=== PATIENT | male | born 1940 | race Hispanic/Latino ===

== ENCOUNTER 2018-10-31 05:49 | Day surgery (SDC) | payer OTHER ==
[2018-10-30 10:17] LABS: BASOPHILS % (AUTO) 0.7 % (0.0-5.0); HEMATOCRIT 39.9 % (42-54); LYMPHOCYTES % (AUTO) 26.4 % (21.0-51.0); MEAN CORPUSCULAR HEMOGLOBIN 31.5 pg (27.0-33.0); MEAN CORPUSCULAR HGB CONC 33.4 g/dL (32.0-36.0); MEAN CORPUSCULAR VOLUME 94.3 fL (79-99); MONOCYTES % (AUTO) 5.8 % (3.0-13.0); NEUTROPHILS % (AUTO) 62.1 % (40.0-77.0); PLATELET COUNT (AUTO) 221 K/uL (130-400); RED BLOOD CELL COUNT(AUTO) 4.23 MIL/uL (4.50-6.20); RED CELL DISTRIBUTION WIDTH 13.8 % (11.0-15.5)
[2018-10-30 10:22] LABS: CREATININE 0.9 mg/dL (0.5-1.5); POTASSIUM 4.2 mmol/L (3.5-5.1)
[2018-10-30 10:32] LABS: INR 0.98 (0.85-1.15); PARTIAL THROMBOPLASTIN TIME 27.3 SEC (26.3-35.5); PROTHROMBIN TIME 10.3 SEC (9.6-11.6)
[2018-10-30 10:49] VITALS: BP 134/65
[~2018-10-31] VITALS: Ht 180.3 cm; Wt 88.2 kg
[2018-10-31] VITALS (9 sets, daily range): BP systolic 100–128; BP diastolic 55–65
[~2018-10-31 05:49] MED LIST: CEFAZOLIN SODIUM 1 GM VIAL IVP SCH; CLOP75TA32 PO; LEVO25TA54 PO; METF-444 PO; METO25TA6 PO; OXYB5TAB10 PO; PRAV20TA4 PO
[2018-10-31] MEDS ORDERED: SODIUM CHLORIDE 0.9% 1000ML 1,000 ML IV ONE (06:06)
[2018-10-31] MEDS ORDERED: [UNRECOGNIZED DRUG - CODE] PO (06:42)
[2018-10-31] MEDS ORDERED: OMEGA 3 PO (06:42)
[2018-10-31] MEDS ORDERED: [UNRECOGNIZED DRUG - OTHER] PO (06:42)
[2018-10-31] MEDS ORDERED: MVIT PO (06:42)
--- NOTE | 2018-10-31 07:20 | NUR ---
PROCEDURE PT TAKEN TO [employer] OFFICER BOOKING VIA BED FOR PROCEDURE. PT AWAKE AND ALERT, FAMILY AT BEDSIDE.
[2018-10-31] MEDS ORDERED: MEPERIDINE-PF 25 MG/ML SYG ONE ×2 (07:37→08:08)
[2018-10-31] MEDS ORDERED: MIDAZOLAM HCL 1 MG/ML 2ML VIAL ONE ×2 (07:37→08:08)
[2018-10-31] MEDS ORDERED: CEFAZOLIN SODIUM 1 GM VIAL ONE (07:37)
[2018-10-31] MEDS ORDERED: LIDOCAINE HCL 1% MDV 50ML VIAL ONE (07:38)
[2018-10-31] MEDS ORDERED: BUPIVACAINE/PF 0.25% 10ML VIAL IJ ONE (07:38)
[2018-10-31] MEDS ORDERED: ACETAMINOPHEN EXTRA STRENGTH 500 MG TABLET PO SCH (09:00)
[2018-10-31] MEDS ORDERED: ACETAMINOPHEN-CODEINE 300/30MG TAB PO PRN (09:00)
--- NOTE | 2018-10-31 09:05 | NUR ---
POST RECEIVED PT FROM [facility] BUSINESS ADMINISTRATOR, S/P PACEMAKER GENERATOR REPLACEMENT, DRESSING TO SITE DRY AND INTACT, NO BLEEDING OR HEMATOMA NOTED. VS STABLE ON ARRIVAL, PT INSTRUCTED TO KEEP BEDREST FOR 3 HRS. FAMILY AT BEDSIDE. PT DENIES ANY PAIN OR DISCOMFORTS.
--- NOTE | 2018-10-31 12:05 | NUR ---
dc dc instructions given to pt / pts spouse, instructed on daily dressing changes and to f/u with dr. vogel. piv removed. left chest dressing dry and intact, no hematoma or bleeding noted. pt denies any pain or discomforts.
--- NOTE | 2018-10-31 12:20 | NUR ---
dc pt dc home via [place] no distress noted. denied any pain or discomforts. accompanied by spouse
== END 2018-10-31 12:20 | disposition home or self-care (01) ==
LOC: DAH 05:49
PROVIDERS: ATTEND Internal Medicine Cardiovascular Disease
DX: Z45.010 Encounter for checking and testing of cardiac pacemaker pulse generator [battery] (principal); I44.2 Atrioventricular block, complete; I10 Essential (primary) hypertension; E03.9 Hypothyroidism, unspecified; E11.9 Type 2 diabetes mellitus without complications; E78.2 Mixed hyperlipidemia; Z86.73 Personal history of transient ischemic attack (TIA), and cerebral infarction without residual deficits; Z98.890 Other specified postprocedural states; I49.8 Other specified cardiac arrhythmias; Z79.899 Other long term (current) drug therapy; Z79.01 Long term (current) use of anticoagulants
CPT/HCPCS: 33228; 36415; 80048; 82948; 85025; 85610; 85730; A4606 ×2; C1785; J0690; J2175 ×2; J2250 ×2; J3490 ×2; J7030; 99152; 99153; 99156; 99157